=== PATIENT | female | born 1970 | race Caucasian/White ===

== ENCOUNTER 2017-08-21 19:07 | Emergency (ER) | payer OTHER ==
[~2017-08-21] VITALS: Ht 165.1 cm; Wt 108.9 kg
== END 2017-08-21 23:03 | disposition home or self-care (01) ==
LOC: ER 19:07
DX: R06.02 Shortness of breath (principal); F06.4 Anxiety disorder due to known physiological condition

== ENCOUNTER 2017-12-13 19:46 | Emergency (ER) | payer OTHER ==
[~2017-12-13] VITALS: Ht 165.1 cm; Wt 113.4 kg
== END 2017-12-13 21:22 | disposition home or self-care (01) ==
LOC: ER 19:46
DX: M79.622 Pain in left upper arm (principal)

== ENCOUNTER 2018-06-07 07:06 | Emergency (ER) | payer OTHER ==
[~2018-06-07] VITALS: Ht 165.1 cm; Wt 106.1 kg
== END 2018-06-07 13:29 | disposition home or self-care (01) ==
LOC: ER 07:06
DX: K04.7 Periapical abscess without sinus (principal)